=== PATIENT | female | born 1985 | race Hispanic/Latino ===

== ENCOUNTER 2021-11-13 17:01 | Outpatient (CLI) | payer OTHER ==
[2021-11-13] MEDS ORDERED: LACTATED RINGERS 1,000 ML IV ONE (17:30)
[2021-11-13 17:40] VITALS: BP 110/79
[2021-11-13] MEDS ORDERED: TERBUTALINE 1 MG/1 ML INJ SUB-Q ONE (18:46)
[2021-11-13 19:04] LABS: Bacteria,Urine 2+ /HPF (Negative); Bilirubin,Urine NEG (Negative); Blood,Urine NEG (Negative); Color,Urine Yellow (Yellow); Mucus,Urine FEW /HPF; Protein,Urine <15 mg/dL mg/dL (Negative); RBC,Urine < 1.0 /HPF (0.0-6.0); Urobilinogen,Urine < 2.0 mg/dL (<2.0)
--- NOTE | 2021-11-13 20:52 | Ultrasound Report ---
ULTRASOUND OBSTETRIC LIMITED ULTRASOUND BIOPHYSICAL PROFILE INDICATION / CLINICAL INFORMATION: c/o decreased movement. COMPARISON: None available. FINDINGS: BREATHING MOVEMENT = 2 GROSS BODY MOVEMENT = 2 TONE = 2 QUALITATIVE AMNIOTIC FLUID VOLUME = 2 TOTAL BIOPHYSICAL SCORE = 8/8 HEART RATE (beats per minute): 158 AMNIOTIC FLUID INDEX (cm) = 13.5 (normal = 7-24 cm) ADDITIONAL FINDINGS: None. IMPRESSION: 1. Biophysical Score = 8/8 Signer Name: Murray Jones MD Signed: 11/13/2021 8:47 PM Workstation Name: [id number]
== END 2021-11-13 21:33 | disposition home or self-care (01) ==
LOC: TRG 17:01 → APU 17:03 → TRG 21:33
PROVIDERS: ATTEND Obstetrics & Gynecology
DX: O36.8130 Decreased fetal movements, third trimester, not applicable or unspecified (principal); O09.523 Supervision of elderly multigravida, third trimester; Z3A.35 35 weeks gestation of pregnancy
CPT/HCPCS: 59025; 76815; 76819; 81001; 96360; 96372; J3105; J7120

== ENCOUNTER 2021-12-03 19:31 | Outpatient (CLI) | payer OTHER ==
[2021-12-03 20:31] VITALS: BP 118/74
[2021-12-03 21:22] LABS: Bacteria,Urine 1+ /HPF (Negative); Bilirubin,Urine NEG (Negative); Blood,Urine NEG (Negative); Color,Urine Yellow (Yellow); Mucus,Urine FEW /HPF; Protein,Urine <15 mg/dL mg/dL (Negative); Urobilinogen,Urine < 2.0 mg/dL (<2.0)
== END 2021-12-03 21:39 | disposition home or self-care (01) ==
LOC: TRG 19:31 → APU 19:32 → TRG 21:39
PROVIDERS: ATTEND Obstetrics & Gynecology
DX: O09.893 Supervision of other high risk pregnancies, third trimester (principal); Z3A.37 37 weeks gestation of pregnancy
CPT/HCPCS: 59025; 81001